=== PATIENT | female | born 1935 | race Caucasian/White ===

== ENCOUNTER → 2020-03-20 | Outpatient (CLI) | payer MEDICARE, OTHER ==
--- NOTE | 2020-03-20 16:36 | RAD ---
Left lower extremity arterial duplex ultrasound study without comparison for claudication. TECHNIQUE AND FINDINGS: Real-time grayscale and color and spectral Doppler evaluation of the arteries the left lower extremity is performed. There is multifocal calcified atherosclerosis in several distributions. There is elevated monophasic flow within the left common femoral artery, with peak systolic velocity of 220 19/s. This suggests hemodynamically significant common femoral artery stenosis and may indicate inflow disease in the iliac arteries as well. There is biphasic flow within the superficial femoral and popliteal arteries as well as in the proximal posterior tibial artery, however there is transition to reduce flow in the proximal posterior tibial artery and transition to monophasic flow within the distal posterior tibial artery. Similar findings are seen within the anterior tibial artery and dorsalis pedis artery. IMPRESSION: 1. Moderate multifocal atherosclerosis. There is hemodynamic significant disease involving both the posterior tibial and anterior tibial arteries, and there may be clinically significant stenosis common femoral artery and distal superficial femoral artery as well. Electronically signed by: Paramjit Bah MD (03/20/2020 4:33 PM) [id number]
== END ==
LOC: US 16:07
PROVIDERS: ATTEND Family Medicine
DX: I70.202 Unspecified atherosclerosis of native arteries of extremities, left leg (principal)
CPT/HCPCS: 93926